=== PATIENT | male | born 1960 | race Caucasian/White ===

== ENCOUNTER 2016-09-13 14:27 | Emergency (ER) | payer MEDICARE, SELFPAY ==
[~2016-09-13 14:27] MED LIST: ACTOS45 MG PO; BISACODYL5 MG PO; CHILDRENS CHEWA81 MG PO; CRESTOR20 MG PO; DICLOFENAC SODI75 MG PO; GLUCOPHAGE1000 MG PO; HCTZ25 MG PO; JANUVIA50 MG PO; LASIX40 MG PO; NEURONTIN400 MG PO; NEXIUM40 MG PO; NISOLDIPINE17 MG PO; OXYCODONE-ACET1 EACH PO; POTASSIUM CHLOR8 ME1 PO; SYNTHROID75 MCG PO; ZANAFLEX4 M1 PO; ZESTRIL20 M1 PO
[2016-09-13 15:41] LABS: CALCIUM 9.8 mg/dL (8.7-10.7); CREATININE 1.5 mg/dL (0.6-1.3); POTASSIUM 4.4 mmol/L (3.5-5.1)
== END 2016-09-13 16:35 | disposition home or self-care (01) ==
LOC: ER 14:27
PROVIDERS: General Practice
DX: M19.072 Primary osteoarthritis, left ankle and foot (principal); M10.9 Gout, unspecified; E11.9 Type 2 diabetes mellitus without complications; E78.5 Hyperlipidemia, unspecified; Z79.899 Other long term (current) drug therapy; Z79.82 Long term (current) use of aspirin; Z79.4 Long term (current) use of insulin
CPT/HCPCS: 36415; 73600; 73620; 80048; 84550; 96372; 99283; 99283-25